=== PATIENT | male | born 2000 | race Hispanic/Latino ===

== ENCOUNTER 2021-01-07 15:06 | Emergency (ER) | payer MEDICAID ==
[2021-01-07] MEDS ORDERED: ZIPRASIDONE MESYLATE 20 MG VIAL IM ONE (15:35)
[2021-01-07 16:19] LABS: BUN/Creatinine Ratio 20; Basophils % (Auto) 0.2 % (0.0-1.8); Blood Urea Nitrogen 16 mg/dL (9-20); Eosinophils # (Auto) 0.1 K/mm3 (0.0-0.4); Eosinophils % (Auto) 0.7 % (0.0-4.3); Hematocrit 48.7 % (35.5-45.6); Hemoglobin 16.4 gm/dl (11.8-15.2); Hemolysis Index 18; Lymphocytes # (Auto) 1.1 K/mm3 (1.2-5.4); Lymphocytes % (Auto) 10.2 % (13.4-35.0); Mean Corpuscular HGB Conc 34 % (32-34); Mean Corpuscular Volume 92 fl (84-94); Monocytes # (Auto) 1.2 K/mm3 (0.0-0.8); Platelet Count 195 K/mm3 (140-440); Red Blood Count 5.29 M/mm3 (3.65-5.03); Red Cell Distribution Width 12.6 % (13.2-15.2)
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
[2021-01-07] MEDS ORDERED: ZIPRASIDONE MESYLATE 20 MG VIAL IM PRN (23:03)
[2021-01-07] MEDS ORDERED: WATER FOR INJ Sterile (PF) 10 ML ONE (23:12)
[2021-01-08 08:58] LABS: Bilirubin,Urine NEG (Negative); Blood,Urine SM (Negative); Color,Urine Yellow (Yellow); Mucus,Urine 1+ /HPF
[2021-01-08 09:06] LABS: Amphetamine Screen,Urine Negative; Benzodiazepines Screen,Urine Negative; Cannabinoid Screen,Urine Negative; Cocaine Screen,Urine Negative; Methadone Screen,Urine Negative; Opiate Screen,Urine Negative
--- NOTE | 2021-01-08 11:43 | Consultation ---
History of Present Illness - Reason for Consult Consult date: 01/08/21 Reason for consult: mental health evaluation - History of Present Psychiatric Illness ED Note: Patient is a 20-year-old gentleman who is presenting with suicidal crisis. Patient states he wants to kill himself. Patient with manic behavior had his snf. Patient speaking with some tangential thoughts with pressured speech. Denies any homicidal ideations. Patient very animated unable to get any additional history at this time. Sherif Shukla is a 20 year old male with history of autism and bipolar disorder. In my interview with the patient, he is in seclusion. The patient presents with anxiety, pacing the room, and has thought blocking. The patient states he tried to commit suicide. He presents with impoverished thought process. He denies any current suicidal/homicidal ideation and denies hallucinations. PAST PSYCHIATRIC HISTORY Diagnoses: Autism and Bipolar disorder Suicide attempts or Self-harm behavior: Denies Prior psychiatric hospitalizations: Yes Substance Abuse history: Denies Previous psychiatric medications tried:unable to recall Outpatient treatment: yes PAST MEDICAL HISTORY: None reported Family Psychiatric History: None reported or documented SOCIAL HISTORY Marital Status: Single Living Arrangements: snf Employment Status: unemployed Access to guns/weapons: Denies Education: Unable to recall History of Abuse: Denies Legal History: unknown EVIEW OF SYSTEMS Constitutional: Negative for weight loss ENT: Negative for stridor Respiratory: Negative for cough or hemoptysis All other systems reviewed and are negative MENTAL STATUS EXAMINATION General Appearance and Behavior: Age appropriate, wearing appropriate clothes, good eye contact, anxious and cooperative Mood: anxious Affect and affective range: Restricted Thought Process: Thought blocking Thought Content: Poverty Speech: Normal volume, Regular rate and rhythm Suicidal Ideation: Denies Homicidal Ideation: Denies Hallucinations: Denies Delusions: none Impulse Control: normal Insight and Judgment: Limited Memory/Cognition: Limited Attention: Normal Orientation: Alert, oriented Assessment (1) Bipolar disorder, Unspecified. (2) (3) Plan 1013 Sitter: Defer to primary Medical: Per primary Disposition: Recommend acute inpatient psychiatric treatment Will follow Case staffed with Dr. Anaya Medications and Allergies Medications and Allergies Allergies Allergy/AdvReac Type Severity Reaction Status Date / Time egg Allergy Unknown Verified 01/07/21 15:28 gluten Allergy Unknown Verified 01/07/21 15:28 lactose Allergy Unknown Verified 01/07/21 15:28 milk Allergy Unknown Verified 01/07/21 15:28 peanut Allergy Unknown Verified 01/07/21 15:28 wheat Allergy Unknown Verified 01/07/21 15:28 Active Meds: Active Medications Ziprasidone (Ziprasidone Mesylate 20 Mg Vial) 10 mg IM Q2H PRN PRN Reason: Agitation Mental Status Exam - Vital signs Last Vital Signs Temp 97.6 F 01/08/21 08:26 Pulse 90 01/08/21 08:26 Resp 20 01/08/21 08:26 BP 110/60 01/08/21 08:26 Pulse Ox 98 01/08/21 08:26 Results Result Diagrams: 01/07/21 15:45 01/07/21 15:45 Abnormal lab results 01/07/21 01/07/21 01/07/21 Range/Units 15:45 15:45 15:45 RBC 5.29 H (3.65-5.03) M/mm3 Hgb 16.4 H (11.8-15.2) gm/dl Hct 48.7 H (35.5-45.6) % RDW 12.6 L (13.2-15.2) % Lymph % (Auto) 10.2 L (13.4-35.0) % [place] % (Auto) 11.0 H (0.0-7.3) % Lymph # (Auto) 1.1 L (1.2-5.4) K/mm3 [place] # (Auto) 1.2 H (0.0-0.8) K/mm3 Seg Neutrophils % 77.9 H (40.0-70.0) % Seg Neutrophils # 8.3 H (1.8-7.7) K/mm3 Carbon Dioxide 18 L (22-30) mmol/L Salicylates < 0.3 L (2.8-20.0) mg/dL Acetaminophen (10.0-30.0) ug/mL 01/07/21 Range/Units 15:45 RBC (3.65-5.03) M/mm3 Hgb (11.8-15.2) gm/dl Hct (35.5-45.6) % RDW (13.2-15.2) % Lymph % (Auto) (13.4-35.0) % [place] % (Auto) (0.0-7.3) % Lymph # (Auto) (1.2-5.4) K/mm3 [place] # (Auto) (0.0-0.8) K/mm3 Seg Neutrophils % (40.0-70.0) % Seg Neutrophils # (1.8-7.7) K/mm3 Carbon Dioxide (22-30) mmol/L Salicylates (2.8-20.0) mg/dL Acetaminophen 5.0 L (10.0-30.0) ug/mL All other labs normal.
[2021-01-08] MEDS: risperiDONE 1 MG TAB PO SCH ×2 (15:55→22:16)
[2021-01-09] MEDS: risperiDONE 1 MG TAB PO SCH (10:44)
--- NOTE | 2021-01-09 11:30 | Emergency Department Report ---
Blank Doc - Documentation Documentation: Patient is resting this morning. Verbal report from the nurse states that psy chiatric evaluation this morning has been complete and the plan is to discharge the patient. He denies suicidal thoughts to me. We will await formal recommendations for disposition. If it is agreed that discharge is appropriate, I will complete his discharge paperwork. He does not appear to be in any distress at this time. 1225-I spoke with Jody Ward, psych REAL ESTATE ACCOUNT EXECUTIVE. She had put an addendum on her note yesterday that recommended discharge. This information had not been relayed to the ED physician. Patient was discharged today.
[2021-01-09 19:41] VITALS: BP 146/85
== END 2021-01-09 19:40 | disposition home or self-care (01) ==
LOC: ED 15:06
DX: R45.851 Suicidal ideations (principal); F30.9 Manic episode, unspecified; F84.0 Autistic disorder; F91.9 Conduct disorder, unspecified; Z20.822 Contact with and (suspected) exposure to COVID-19
CPT/HCPCS: 36415; 80048; 80307; 81001; 85025; 96372; 99284; J3486; U0003; 80320; G0480